=== PATIENT | female | born 1975 | race Caucasian/White ===

== ENCOUNTER 2018-03-03 20:49 | Emergency (ER) | payer OTHER ==
[~2018-03-03] VITALS: Ht 175.3 cm; Wt 61.2 kg
[~2018-03-03 20:49] MED LIST: BACLOFEN20 MG; LEXAPRO20 MG
[2018-03-03] MEDS ORDERED: BACLOFEN20 MG (22:22)
[2018-03-03] MEDS ORDERED: DETROL LA4 MG (22:23)
[2018-03-03] MEDS ORDERED: [UNRECOGNIZED DRUG - OTHER] (22:23)
[2018-03-03] MEDS ORDERED: TRAZODONE HCL50 MG (22:24)
[2018-03-03] MEDS ORDERED: DILAUDID4 MG (22:25)
[2018-03-03] MEDS ORDERED: LEXAPRO20 MG (22:25)
[2018-03-04] MEDS ORDERED: ZYNCOF 20-400120 ML PO (02:32)
[2018-03-04] MEDS ORDERED: XOPENEX0.63 MG/3 IH (02:32)
== END 2018-03-04 04:03 | disposition home or self-care (01) ==
LOC: ER 20:49
DX: J06.9 Acute upper respiratory infection, unspecified (principal); J11.1 Influenza due to unidentified influenza virus with other respiratory manifestations